=== PATIENT | male | born 1955 | race Hispanic/Latino ===

== ENCOUNTER 2019-08-15 08:05 | Day surgery (SDC) | payer OTHER, MEDICARE ==
[~2019-08-15] VITALS: Ht 177.8 cm; Wt 123.4 kg
[2019-08-15 11:15] VITALS: BP 134/86
[2019-08-15] MEDS ORDERED: PROPOFOL 10 MG/ML 20ML VIAL IV ONE (11:42)
[2019-08-15] MEDS ORDERED: CORTSOL OT (12:26)
[2019-08-15] MEDS ORDERED: CLOP75TA32 PO (12:26)
[2019-08-15] MEDS ORDERED: UMEC1DIS IH (12:26)
[2019-08-15] MEDS ORDERED: ASPI-555 PO (12:26)
[2019-08-15] MEDS ORDERED: MELO-106 PO (12:26)
[2019-08-15] MEDS ORDERED: FAMO20TA8 PO (12:26)
[2019-08-15] MEDS ORDERED: FURO20TA4 PO (12:26)
[2019-08-15] MEDS ORDERED: LINA145C PO (12:26)
[2019-08-15] MEDS ORDERED: ROSU5TAB12 PO (12:26)
[2019-08-15] MEDS ORDERED: DULO30CA52 PO (12:26)
[2019-08-15] MEDS ORDERED: CETI10TA57 PO (12:26)
[2019-08-15] MEDS ORDERED: KETO30CR21 TP (12:26)
[2019-08-15] MEDS ORDERED: CARV12.511 PO (12:26)
[2019-08-15] MEDS ORDERED: FLUT16H NASAL (12:26)
[2019-08-15] MEDS ORDERED: BISA5TAB12 PO (12:26)
[2019-08-15] MEDS ORDERED: AMOX1TAB16 PO (12:26)
[2019-08-15] MEDS ORDERED: VITAD50000 PO (12:26)
[2019-08-15 12:36] VITALS: BP 114/56
[2019-08-15 12:41] VITALS: BP 126/71
[2019-08-15 12:46] VITALS: BP 124/73
[2019-08-15 12:51] VITALS: BP 128/68
== END 2019-08-15 13:15 | disposition home or self-care (01) ==
LOC: DAH 08:05 → ENDO 08:05
PROVIDERS: ATTEND Internal Medicine
DX: Z12.11 Encounter for screening for malignant neoplasm of colon (principal); K63.5 Polyp of colon; R10.13 Epigastric pain; K22.8 Other specified diseases of esophagus; K31.9 Disease of stomach and duodenum, unspecified; K21.9 Gastro-esophageal reflux disease without esophagitis; I10 Essential (primary) hypertension; I25.10 Atherosclerotic heart disease of native coronary artery without angina pectoris; Z95.5 Presence of coronary angioplasty implant and graft; Z79.82 Long term (current) use of aspirin; Z79.899 Other long term (current) drug therapy
CPT/HCPCS: 43239; 45380; A4606; J2704